=== PATIENT | female | born 1955 | race American Indian/Alaskan Native ===

== ENCOUNTER 2018-02-26 11:44 | Emergency (ER) | payer MEDICARE ==
[2018-02-26 12:16] VITALS: BP 166/83; PULSE 100; RESP 20; TEMP 99; O2SAT 98
--- NOTE | 2018-02-26 14:57 | C.PDOC ---
History Of Present Illness 62 year old female presents to the ED complaining of productive cough with yellow-greenish sputum and nasal congestion for 3 days. Denies any fever, chills, nausea, vomiting, diarrhea, shortness of breath. Time Seen by Provider: 02/26/18 12:30 Chief Complaint (Nursing): Cough, Cold, Congestion History Per: Patient History/Exam Limitations: no limitations Onset/Duration Of Symptoms: Days (3) Current Symptoms Are (Timing): Still Present Past Medical History Vital Signs: Last Vital Signs Temp 99 F 02/26/18 12:12 Pulse 100 H 02/26/18 12:12 Resp 20 02/26/18 12:12 BP 166/83 H 02/26/18 12:12 Pulse Ox 98 02/26/18 12:12 - Medical History PMH: Asthma, HTN, Hypercholesterolemia Other Surgeries: hysterectomy Family History: States: No Known Family Hx - Social History Hx Alcohol Use: No Hx Substance Use: No - Immunization History Hx Tetanus Toxoid Vaccination: No Hx Influenza Vaccination: No Hx Pneumococcal Vaccination: No Review Of Systems Except As Marked, All Systems Reviewed And Found Negative. Constitutional: Negative for: Fever, Chills ENT: Positive for: Nose Congestion. Negative for: Ear Pain Respiratory: Positive for: Cough, Sputum. Negative for: Shortness of Breath Gastrointestinal: Negative for: Nausea, Vomiting, Diarrhea Genitourinary: Negative for: Dysuria, Hematuria Physical Exam - Physical Exam Appears: Non-toxic, No Acute Distress Skin: Warm, Dry, No Rash Head: Normacephalic Eye(s): bilateral: Normal Inspection Oral Mucosa: Moist Throat: Normal, No Erythema, No Exudate Neck: Supple Chest: Symmetrical Cardiovascular: Rhythm Regular Respiratory: No Rales, No Rhonchi, No Wheezing Extremity: Bilateral: Atraumatic, Normal Color And Temperature, Normal ROM Neurological/Psych: Oriented x3, Normal Speech Gait: Steady ED Course And Treatment O2 Sat by Pulse Oximetry: 98 (RA) Pulse Ox Interpretation: Normal - Other Rad CXR X-Ray: Viewed By Me, Read By Radiologist Interpretation: Accession No. : [id number]. Patient Name / ID : STALIN Arreaga / [id number]. Exam Date : 02/26/2018 13:36:39 ( Approved ). Study Comment : Sex / Age : F / 62Y. Creator : Kenneth Watson MD. Dictator : Kenneth Watson MD. Automotive Design Drafter : Stock Speculator : Kenneth Watson MD. Approver2 : Report Date : 02/26/2018 14:58:46. My Comment : . Date of service: 02/26/2018. HISTORY: cough. COMPARISON: No prior. TECHNIQUE: Chest PA and lateral. FINDINGS: LUNGS: No active pulmonary disease. PLEURA: No significant pleural effusion identified. No pneumothorax a pparent. CARDIOVASCULAR: No aortic atherosclerotic calcification present. Normal cardiac size. No pulmonary vascular congestion. OSSEOUS STRUCTURES: Old healed fractures of the left 5th, 6th and 7th ribs. VISUALIZED UPPER ABDOMEN: Normal. OTHER FINDINGS: None. IMPRESSION: No active disease. Progress Note: Patient treated wtih Zithromax. On reevaluation, patient reports feeling better. Disposition - Disposition Disposition: HOME/ ROUTINE Disposition Time: 14:54 Condition: STABLE Additional Instructions: Follow up with PMD within 2-3 days. Return to ED if feel worse. Prescriptions: Benzonatate [Tessalon Perles] 2 tab PO TID #60 sgl Azithromycin [Zithromax] 250 mg PO DAILY #4 tab Instructions: Acute Bronchitis Forms: [email or web address] (Gambian) - Clinical Impression Clinical Impression: Bronchitis
--- NOTE | 2018-02-26 15:02 | RAD ---
Date of service: 02/26/2018 HISTORY: cough COMPARISON: No prior. TECHNIQUE: Chest PA and lateral FINDINGS: LUNGS: No active pulmonary disease. PLEURA: No significant pleural effusion identified. No pneumothorax apparent. CARDIOVASCULAR: No aortic atherosclerotic calcification present. Normal cardiac size. No pulmonary vascular congestion. OSSEOUS STRUCTURES: Old healed fractures of the left 5th, 6th and 7th ribs. VISUALIZED UPPER ABDOMEN: Normal. OTHER FINDINGS: None. IMPRESSION: No active disease.
== END 2018-02-26 15:11 | disposition home or self-care (01) ==
LOC: C.ER 11:44
DX: J40 Bronchitis, not specified as acute or chronic (principal); I10 Essential (primary) hypertension; E78.00 Pure hypercholesterolemia, unspecified